=== PATIENT | female | born 1945 | race Caucasian/White ===

== ENCOUNTER → 2019-12-27 10:21 | Outpatient (CLI) | payer MEDICARE, OTHER, SELFPAY ==
--- NOTE | ~2019-12-27 | US_ITS ---
EXAMINATION: US pelvic complete DATE: 12/27/2019 10:55 INDICATION: Follow-up left ovarian cyst. Comparison: Ultrasound dated 08/24/2018 TECHNIQUE: Multiple transabdominal sonographic images of the pelvis performed. FINDINGS: The uterus measures 9.5 x 6.5 x 7.9 cm. There are multiple uterine fibroids. The largest fi broids are located at the fundus measuring 4 x 3.7 x 2.7 cm and on the right at the fundus measuring 3.7 x 3 x 1.9 cm. The endometrial complex measures 10 mm. The right ovary measures 2.2 x 1.6 x 2.2 cm and the left ovary measures 1.7 x 0.8 x 1.4 cm. There ar e small follicles in each ovary. There is no free fluid in the pelvis. There are no abnormal masses seen on either side. IMPRESSION: 1. Enlarged uterus containing multiple fibroids, largest measuring 4 cm maximum dimension. 2: Thickened endomtrial complex. The differential diagnosis includes endometrial hyperplasia, polyp a nd carcinoma. Biopsy is recommended. Reviewed, dictated and finalized at location B. IMPRESSION: 1. Enlarged uterus containing multiple fibroids, largest measuring 4 cm maximum dimension. 2: Thickened endomtrial complex. The differential diagnosis includes endometria l hyperplasia, polyp and carcinoma. Biopsy is recommended.
== END ==
PROVIDERS: PCP Internal Medicine; Visit Provider Obstetrics & Gynecology
DX: N83.202 Unspecified ovarian cyst, left side (principal); D25.9 Leiomyoma of uterus, unspecified; R93.89 Abnormal findings on diagnostic imaging of other specified body structures
CPT/HCPCS: 76856

== ENCOUNTER → 2020-04-19 09:24 | Outpatient (CLI) | payer MEDICARE, OTHER, SELFPAY ==
--- NOTE | ~2020-04-19 | MM_ITS ---
EXAMINATION: MM screening carole BI w rey HISTORY: Screening mammogram TECHNIQUE: Craniocaudal and mediolateral oblique 3-D tomosynthesis images were obtained and synthetic 2-D images were generated. CAD analysis was submitted and interpreted. COMPARISON: 08/24/2018, 07/01/2017, 06/09/2017, 05/18/2015, 03/31/2013 bilateral digital screening mammogra m examinations BREAST PARENCHYMAL COMPOSITION: There are scattered areas of fibroglandular density. FINDINGS: Stable mild fibroglandular asymmetry since 03/31/2013. Occasional benign calcifications. The re is no evidence of suspicious mass, calcification, or architectural distortion to suggest malignanc y in either breast. There has been no suspicious interval change. IMPRESSION: 1. No mammographic evidence of malignancy. 2. Recommend routine screening mammography in one year. BI-RADS Category 2: Benign finding(s). Reviewed, dictated and finalized at location A. IDER RELATIONS REPRESENTATIVE
--- NOTE | ~2020-04-19 | US_ITS ---
EXAMINATION: US transvaginal DATE: 04/19/2020 09:54 INDICATION: Thickened endometrium Comparison:Ultrasound dated 12/27/2019 TECHNIQUE: Multiple transabdominal and endovaginal sonographic images of the pelvis performed. FINDINGS: The uterus measures 7.6 x 4.4 x 6.3 cm. Uterus is retroverted. There are multiple uterine f ibroids. There is a small mass at the endometrium measuring 9 mm which may represent a submucosal fib roid or polyp. Largest discrete fibroid measures 3 cm. The endometrial complex measures 9 mm. The right ovary measures 2.4 x 2 x 2.4 cm and the left ovary measures 2.2 x 1.5 x 1.4 cm. There are small follicles in each ovary.Normal doppler signal in both ovaries. There is no free fluid in the pelvis. There are no abnormal masses seen on either side. IMPRESSION: 1. Prominent uterus containing multiple fibroids measuring up to 3 cm. 2: Thickened endomtrial complex. Small hypoechoic 9 mm mass at the endometrium. The differential diag nosis includes endometrial hyperplasia, polyp and carcinoma. Biopsy is recommended. Reviewed, dictated and finalized at location B. SIONAL BABYSITTER IMPRESSION: 1. Prominent uterus containing multiple fibroids measuring up to 3 cm. 2: Thickened endomtrial complex. Small hypoechoic 9 mm mass at the endometrium. The differential diagnosis includes endometrial hyperplasia, polyp and carcinoma. Biopsy is recommended.
== END ==
PROVIDERS: PCP Internal Medicine; Visit Provider Obstetrics & Gynecology
DX: Z12.31 Encounter for screening mammogram for malignant neoplasm of breast (principal); D25.9 Leiomyoma of uterus, unspecified
CPT/HCPCS: 76830; 77063; 77067

== ENCOUNTER → 2020-05-08 00:34 | Outpatient (CLI) | payer MEDICARE, OTHER, SELFPAY ==
[2020-05-08 19:08] LABS: SARS-CoV-2 RNA PCR Negative
== END ==
PROVIDERS: PCP Internal Medicine; Visit Provider Obstetrics & Gynecology
DX: Z01.812 Encounter for preprocedural laboratory examination (principal); Z20.822 Contact with and (suspected) exposure to COVID-19
CPT/HCPCS: C9803; U0003; U0005

== ENCOUNTER 2020-05-08 09:11 | Outpatient (CLI) | payer MEDICARE, OTHER, SELFPAY ==
--- NOTE | 2020-05-08 09:21 | ECG_ITS ---
Measurements Intervals [place] Rate: 67 P: 45 TX: 184 QRS: 43 QRSD: 93 T: 52 QT: 388 QTc: 412 Interpretive Statements SINUS RHYTHM INCOMPLETE RIGHT BUNDLE BRANCH BLOCK DELAYED PRECORDIAL R/S TRANSITION BASELINE ARTIFACT- I, II, III, AVR, AVL BORDERLINE ECG Electronically Signed On 05-08-2020 9:31:06 FEED ADVISER by Jonathan Romero D.O.
== END 2020-05-08 09:12 | disposition home or self-care (01) ==
PROVIDERS: PCP Internal Medicine; Visit Provider Obstetrics & Gynecology
DX: Z01.810 Encounter for preprocedural cardiovascular examination (principal); E78.00 Pure hypercholesterolemia, unspecified; I45.10 Unspecified right bundle-branch block
CPT/HCPCS: 93005; C9803; U0003; U0005

== ENCOUNTER 2020-05-11 00:06 | Day surgery (SDC) | payer MEDICARE, OTHER, SELFPAY ==
[2020-05-04 09:27] VITALS: BMI 21.0
--- NOTE | 2020-05-10 13:52 | WPDANESEPPF ---
Anes - Initial Pre Proc Eval Procedure: Operation Date: 05/11/20 15:00 Proposed Procedures p Hysteroscopy, Dilation And Curettage - Gomez Chatman MD Date/Time: 05/10/20 13:52 Surgeon: Gomez Chatman MD Pre Op Diagnosis: Thickened Endometrial Lining Patient Data Age: 74 Gender: F Height: 1.57 m Weight: 52.27 kg Allergies Allergy/AdvReac Type Severity Reaction Status Date / Time No Known Allergies Allergy Verified 05/11/20 12:59 Home Medications Medication Instructions Recorded Confirmed Type atorvastatin 40 mg QAM 05/04/20 05/11/20 History calcium jyx-act-O8-Zn-endoscopy support specialist-fiona 1 tablet PO QAM 05/04/20 05/11/20 History [Calcium Citrate Plus] cholecalciferol (vitamin D3) 50 mcg PO QAM 05/04/20 05/11/20 History [Vitamin D3] melatonin 3 mg PO HS PRN 05/04/20 05/11/20 History multivitamin [Multi-Vitamin] 1 tablet QAM 05/04/20 05/11/20 History zinc 50 mg PO QAM 05/04/20 05/11/20 History Patient hx anesthesia problems: none Family hx anesthesia problems: none PMFSH Past Medical History Medical History (Updated 05/11/20 @ 12:15 by Gomez Chatman MD) Endometrial thickening on ultrasound Hypercholesterolemia Osteoarthritis Surgical History Surgical History (Updated 05/11/20 @ 12:13 by Gomez Chatman MD) History of dilation and curettage Social History Social History Smoking status: Never smoker Second hand tobacco smoke exposure: Yes Alcohol intake: current Drinks per week: 6 Substance use: never Substance use type: does not use Living arrangements: alone Spiritual care concerns: No Anes - Eval Final PreProcedure Day of Procedure 05/10/20 13:52 Patient weight: normal Heart: regular rate and rhythm Lungs: clear to auscultation and normal air movement Airway: Mallampati scale class II Neurological: alert and oriented Last oral intake: >/= 8 hours ASA classification: II Emergent: no Anesthetic plan: proceed Anesthesia type and monitoring: general GIVS Informed Consent: The patient's anesthetic plan and its attendant risks and benefits were discussed with the patient/family/POA. Questions were solicited and answers provided to the satisfaction of the patient/family/POA.
--- NOTE | 2020-05-11 12:10 | P.HP_ITS ---
History of Present Illness History of Present Illness Consent: Risks, benefits, and alternatives have been discussed and questions answered. Patient agrees to proceed with procedure. Chief complaint: Thickened Endometrial Lining Narrative: Melissa Blair is a 74 year old female with endometrial lining and a history of polyps. Patient had and ultrasound for follow up on ovarian cyst and noted a thickened EMS of 9mm. Patient denies any current bleeding or pain. Review of Systems Review of Systems: All systems reviewed & are unremarkable except as noted in HPI and below PMFSH Past Medical History Medical History (Updated 05/11/20 @ 12:15 by Gomez Chatman MD) Endometrial thickening on ultrasound Hypercholesterolemia Osteoarthritis Surgical History Surgical History (Updated 05/11/20 @ 12:13 by Gomez Chatman MD) History of dilation and curettage Social History Social History Smoking status: Never smoker Second hand tobacco smoke exposure: Yes Alcohol intake: current Drinks per week: 6 Substance use: never Substance use type: does not use Living arrangements: alone Spiritual care concerns: No Meds Home Medications and Allergies Home Medications Medication Instructions Recorded Confirmed Type atorvastatin 40 mg QAM 05/04/20 05/04/20 History calcium pvp-eqm-H1-Zn-copy camera operator-fiona 1 tablet PO QAM 05/04/20 05/04/20 History [Calcium Citrate Plus] cholecalciferol (vitamin D3) 50 mcg PO QAM 05/04/20 05/04/20 History [Vitamin D3] melatonin 3 mg PO HS PRN 05/04/20 05/04/20 History multivitamin [Multi-Vitamin] 1 tablet QAM 05/04/20 05/04/20 History zinc 50 mg PO QAM 05/04/20 05/04/20 History Allergies Allergy/AdvReac Type Severity Reaction Status Date / Time No Known Allergies Allergy Unverified 05/04/20 09:21 Exam Const: General: cooperative and well developed Resp: Effort & Inspection: normal respiratory effort Cardio: Rate: regular rate Rhythm: regular rhythm GI: Auscultation: normal bowel sounds : Speculum Exam - Vagina: vagina atrophic Speculum Exam - Cervix: normal appearance of the cervix Assessment and Plan Assessment and plan (1) History of dilation and curettage: Code(s): Z98.890 - Other specified postprocedural states Status: Acute (2) Endometrial thickening on ultrasound: Code(s): R93.89 - Abnormal findings on diagnostic imaging of other specified body structures Status: Acute Assessment and Plan: Patient scheduled for a hysteroscopy with dilation and curettage. Risk and benefits reviewed with patient.
--- NOTE | 2020-05-11 13:02 | P.HP_ITS ---
History of Present Illness History of Present Illness Consent: Risks, benefits, and alternatives have been discussed and questions answered. Patient agrees to proceed with procedure. Chief complaint: Thickened Endometrial Lining Narrative: Melissa Blair is a 74 year old female [facility] Past Medical History Medical History (Updated 05/11/20 @ 12:15 by Gomez Chatman MD) Endometrial thickening on ultrasound Hypercholesterolemia Osteoarthritis Surgical History Surgical History (Updated 05/11/20 @ 12:13 by Gomez Chatman MD) History of dilation and curettage Social History Social History Smoking status: Never smoker Second hand tobacco smoke exposure: Yes Alcohol intake: current Drinks per week: 6 Substance use: never Substance use type: does not use Living arrangements: alone Spiritual care concerns: No Meds Home Medications and Allergies Home Medications Medication Instructions Recorded Confirmed Type atorvastatin 40 mg QAM 05/04/20 05/11/20 History calcium mfv-ygs-M0-Zn-newspaper copy editor-fiona 1 tablet PO QAM 05/04/20 05/11/20 History [Calcium Citrate Plus] cholecalciferol (vitamin D3) 50 mcg PO QAM 05/04/20 05/11/20 History [Vitamin D3] melatonin 3 mg PO HS PRN 05/04/20 05/04/20 History multivitamin [Multi-Vitamin] 1 tablet QAM 05/04/20 05/04/20 History zinc 50 mg PO QAM 05/04/20 05/04/20 History Allergies Allergy/AdvReac Type Severity Reaction Status Date / Time No Known Allergies Allergy Verified 05/11/20 12:59 Exam Resp: Effort & Inspection: normal respiratory effort GI: Inspection: normal to inspection Auscultation: normal bowel sounds : External Female Exam: normal external appearance Speculum Exam - Vagina: normal appearance of the vagina Assessment and Plan Assessment and plan (1) Endometrial thickening on ultrasound: Code(s): R93.89 - Abnormal findings on diagnostic imaging of other specified body structures Status: Acute Assessment and Plan: scheduled for hysteroscopy dilation and curettage. Risk and benefits reviewed with patient.
--- NOTE | 2020-05-11 13:03 | WPDHPUPDATE1 ---
History and Physical Update Update Date/Time: 05/11/20 13:03 History and Physical has been reviewed, including an updated exam of the patient. There are NO changes in the patient's condition. Risks, benefits, and alternatives have been discussed and questions answered. Patient agrees to proceed with procedure.
[2020-05-11] MEDS: LACTATED RINGERS 1,000 ML 30 ML IV CONT (13:30)
[2020-05-11] MEDS: ACETAMINOPHEN 500 MG TABLET 1000 MG PO (13:30)
[2020-05-11 13:33] VITALS: BP 135/65; PULSE 70; RESP 16; TEMP 36.6; O2SAT 100
--- NOTE | 2020-05-11 14:42 | SUR.PREOP ---
Resting without complaints. Denies need to go to bathroom.
--- NOTE | 2020-05-11 15:12 | SUR.PREOP ---
Up to bathroom.
[2020-05-11 16:09] VITALS: BP 133/67; PULSE 82; RESP 15
--- NOTE | 2020-05-11 16:12 | PM.PROC ---
Procedure Note - Detailed Date of procedure: 05/11/20 Pre-op diagnosis: Thickened Endometrial Lining Post-op diagnosis: same Procedure performed: hysteroscopy with dilation and curettage and myosure Description of procedure: Patient was taken to the operating room with IV running. She was prepped draped in normal sterile fashion and placed in the lithotomy position. [place] speculum was placed into vagina. Anterior lip of the cervix was grasped with a single-tooth tenaculum uterus was sounded to 6cm. And the cervix was dilated with Hegar dilators to a 7. Hysteroscope introduced noted small false passage but intact uterus the cavity was identified bilateral ostia with some thickening in the posterior portion of the uterus. The hysteroscope was removed and the MyoSure device was attached and able to enter the cavity performed a curettage with MyoSure device however secondary to fluid deficit 700 procedure was aborted. A sharp curettage was performed in all 4 quadrants both for preferably the posterior wall of the uterus for sharp curettage. All instruments were removed from vagina hemostasis was assured the patient was taken to recovery room in stable condition Anesthesia: MAC and local Surgeon: Gomez Chatman MD Estimated blood loss (mL): 20 Drains: No Pathology: yes Complications: None Condition: stable
--- NOTE | 2020-05-11 16:15 | SUR.OPER ---
Myosure 1000ml in 310ml return deficet 690ml and Dr Chatman informed and aware and responded. Mihaela YOUNG in Outpatient PACU informed of fluid deficet and aware. Marilynn pad with small amount of blood prior to going to outpatient. Patient talking and laying on side and no SOB.
[2020-05-11] MEDS: fentaNYL CITRATE INJ (*CRX) 100 MCG/2 ML VIAL 25 MCG IV PUSH (16:25)
[2020-05-11 16:30] VITALS: BP 105/59; PULSE 73; RESP 20
[2020-05-11 17:00] VITALS: BP 129/65; PULSE 82; RESP 20
== END 2020-05-11 17:20 | disposition home or self-care (01) ==
PROVIDERS: PCP Internal Medicine; Visit Provider Obstetrics & Gynecology
PROC: 0U5B8ZZ Destruction of Endometrium, Via Natural or Artificial Opening Endoscopic (ICD-10-PCS; CPT 58563; principal; 2020-05-11 15:00)
DX: N85.8 Other specified noninflammatory disorders of uterus (principal); E78.00 Pure hypercholesterolemia, unspecified; M19.90 Unspecified osteoarthritis, unspecified site
CPT/HCPCS: 58558; 88305; A9270; J1100; J2405; J2704; J3010; J7030; J7120

== ENCOUNTER → 2022-01-20 10:19 | Outpatient (CLI) | payer MEDICARE, OTHER, SELFPAY ==
--- NOTE | ~2022-01-20 | MM_ITS ---
EXAMINATION: MM screening carole BI w rey HISTORY: Screening TECHNIQUE: Craniocaudal and mediolateral oblique 3-D tomosynthesis images were obtained and synthetic 2-D images were generated. CAD analysis was submitted and interpreted. COMPARISON: Comparison to multiple prior studies sequentially, with oldest reviewed study dated 03/31. BREAST PARENCHYMAL COMPOSITION: Breast composed of scattered areas of fibroglandular density FINDINGS: There are developing asymmetries in the outer aspect of the left breast. The right breast i s stable without evidence for malignancy. IMPRESSION: 1. Bulging left breast asymmetries. 2. Additional mammographic views and possible breast ultrasound are recommended. BI-RADS Category 0: Incomplete: Needs additional imaging evaluation. Reviewed, dictated and finalized at location A. ITE PROJECT MANAGER IMPRESSION: 1. Bulging left breast asymmetries. 2. Additional mammographic views and possible breast ultrasound are recommended . BI-RADS Category 0: Incomplete: Needs additional imaging evaluation.
== END ==
DX: Z12.31 Encounter for screening mammogram for malignant neoplasm of breast (principal); R92.8 Other abnormal and inconclusive findings on diagnostic imaging of breast
CPT/HCPCS: 77063; 77067

== ENCOUNTER → 2022-02-11 09:45 | Outpatient (CLI) | payer MEDICARE, OTHER, SELFPAY ==
--- NOTE | ~2022-02-11 | MMUS_ITS ---
EXAMINATION: MM diagnostic carole LT w rey, US breast LT limited HISTORY: Possible left breast masses on screening mammogram TECHNIQUE: Additional 3-D tomosynthesis images of the left breast were performed and synthetic 2-D im ages were generated. CAD analysis was submitted and interpreted. High resolution limited left breast ultrasound was performed. COMPARISON: 01/20/2022, 04/19/2020, 08/24/2018 FINDINGS: MAMMOGRAPHIC FINDINGS: There is a 9 mm oval, obscured, low density mass in the middle third of the outer breast at the 3:00 location 6.5 cm from the nipple. No suspicious calcification or architectural distortion are identifi ed. ULTRASOUND: There is a 9 mm x 7 mm cyst with thin internal septation at the 3:00 location 4 cm from the nipple. T here is a 4 mm round, circumscribed, hypoechoic mass with posterior acoustic enhancement and no inter nal vascularity at the 5:00 location 2 cm from the nipple. IMPRESSION: 1. Probably benign left breast mass at the 5:00 location. 2. Recommend 6 month follow-up left diagnostic mammogram and ultrasound. BI-RADS category 3, probably benign findings. Reviewed, dictated and finalized at location A. OR'S ASSISTANT IMPRESSION: 1. Probably benign left breast mass at the 5:00 location. 2. Recommend 6 month follow-up left diagnostic mammogram and ultrasound. BI-RADS category 3, probably benign findings.
== END ==
PROVIDERS: PCP Internal Medicine
DX: R92.8 Other abnormal and inconclusive findings on diagnostic imaging of breast (principal)
CPT/HCPCS: 76642; 77061; 77065; G0279

== ENCOUNTER 2023-11-02 14:52 | Outpatient (CLI) | payer MEDICARE, SELFPAY ==
--- NOTE | ~2023-11-02 | MM_ITS ---
EXAMINATION: MM screening carole BI w rey HISTORY: Screening TECHNIQUE: Craniocaudal and mediolateral oblique 3-D tomosynthesis images were obtained and synthetic 2-D images were generated. CAD analysis was submitted and interpreted. COMPARISON: Comparison to multiple prior studies sequentially, with oldest reviewed study dated 05/2017. BREAST PARENCHYMAL COMPOSITION: Dense: The breasts are heterogeneously dense, which may obscure small masses FINDINGS: There is no evidence of suspicious mass, calcification, or architectural distortion to sugg est malignancy in either breast. There has been no suspicious interval change. IMPRESSION: 1. No mammographic evidence of malignancy. 2. Recommend routine screening mammography in one year. BI-RADS Category 1: Negative Reviewed, dictated and finalized at location B.
== END 2023-11-02 14:53 ==
PROVIDERS: PCP Obstetrics & Gynecology Gynecology; Visit Provider Family Medicine
DX: Z12.31 Encounter for screening mammogram for malignant neoplasm of breast (principal)
CPT/HCPCS: 77063; 77067

== ENCOUNTER 2024-11-03 15:12 | Outpatient (CLI) | payer MEDICARE, SELFPAY ==
--- NOTE | ~2024-11-03 | MM_ITS ---
EXAMINATION: MM screening [facility] BI w rey HISTORY: Screening TECHNIQUE: Craniocaudal and mediolateral oblique 3-D tomosynthesis images were obtained and synthetic 2-D images were generated. CAD analysis was submitted and interpreted. COMPARISON: Comparison to multiple prior studies sequentially, with oldest reviewed study dated 05/18/2015. BREAST PARENCHYMAL COMPOSITION: The breasts are heterogeneously dense, which may obscure small masses. FINDINGS: There is no evidence of suspicious mass, calcification, or architectural distortion to suggest malignancy in either breast. Scattered benign-appearing calcifications are present. IMPRESSION: 1. No mammographic evidence of malignancy. 2. Recommend routine screening mammography in one year. BI-RADS Category 2: Benign finding(s). Reviewed, dictated and finalized at location B.
== END 2024-11-03 15:13 | disposition home or self-care (01) ==
LOC: MICIMG 15:13
PROVIDERS: PCP Obstetrics & Gynecology Gynecology; Visit Provider Obstetrics & Gynecology Gynecology
DX: Z12.31 Encounter for screening mammogram for malignant neoplasm of breast (principal)
CPT/HCPCS: 77063; 77067